=== PATIENT | male | born 1995 | race Caucasian/White ===

== ENCOUNTER 2017-02-09 18:56 | Emergency (ER) | payer SELFPAY ==
[~2017-02-09] VITALS: Ht 185.4 cm; Wt 74.8 kg
[2017-02-09 19:02] VITALS: BP 151/82
[2017-02-09] MEDS ORDERED: AMOXICILLIN 250 MG CAPSULE. PO ONE (19:15)
[2017-02-09] MEDS ORDERED: IBUPROFEN 800 MG TABLET. PO ONE (19:15)
[2017-02-09] MEDS ORDERED: HYDROcodone/APAP 5/325MG 1 TAB TABLET PO ONE (19:15)
[2017-02-09] MEDS ORDERED: ACET-704 PO (19:28)
[2017-02-09] MEDS ORDERED: AMOX875T PO (19:28)
[2017-02-09] MEDS ORDERED: IBUP-1060 PO (19:28)
--- NOTE | 2017-02-09 19:28 | PHYS DOC ---
Past Medical History Past Medical History: No Pertinent History Past Surgical History: Other Additional Past Surgical Histo: BACK CYST REMOVED, NOSE RECONSTRUCTION Alcohol Use: Occasionally Drug Use: None Adult General Chief Complaint Chief Complaint: DENTAL PROBLEM HPI HPI Patient is a 22 year old dental abscess that began this morning. Patient denies any fever or trismus. Review of Systems Review of Systems Constitutional: Denies fever or chills [] Eyes: Denies change in visual acuity, redness, or eye pain [] HENT: dental abscess Musculoskeletal: Denies back pain or joint pain [] Integument: Denies rash or skin lesions [] Neurologic: Denies headache, focal weakness or sensory changes [] Current Medications Current Medications Current Medications Medications (Trade) Dose Ordered Sig/Mariia Start Time Stop Time Status Last Admin Dose Admin Acetaminophen/ Hydrocodone Bitart (Lortab 5/325) 1 tab 1X ONCE 02/09/17 19:15 02/09/17 19:23 DC Amoxicillin (Amoxil) 1,000 mg 1X ONCE 02/09/17 19:15 02/09/17 19:23 DC Ibuprofen (Motrin) 800 mg 1X ONCE 02/09/17 19:15 02/09/17 19:23 DC Allergies Allergies Allergies Coded Allergies Type Severity Reaction Last Updated Verified No Known Drug Allergies 02/09/17 No Physical Exam Physical Exam Constitutional: Well developed, well nourished, no acute distress, non-toxic appearance. [] HENT: Normocephalic, atraumatic, bilateral external ears normal, oropharynx moist, no oral exudates, nose normal. [] Right cheek with mild swelling consistent with a dental abscess. There is mild diffuse swelling with erythema noted on the right molars and premolars. No fluctuance. Skin: Warm, dry, no erythema, no rash. [] Back: No tenderness, no CVA tenderness. [] Extremities: No tenderness, no cyanosis, no clubbing, ROM intact, no edema. [] Neurologic: Alert and oriented X 3, normal motor function, normal sensory function, no focal deficits noted. [] Psychologic: Affect normal, judgement normal, mood normal. [] Current Patient Data Vital Signs Vital Signs Date Time Temp Pulse Resp B/P (MAP) Pulse Ox O2 Delivery O2 Flow Rate FiO2 02/09/17 19:02 100.6 114 16 98 Room Air 100.6 EKG EKG [] Radiology/Procedures Radiology/Procedures [] Course & Med Decision Making Course & Med Decision Making Pertinent Labs and Imaging studies reviewed. (See chart for details) Patient is in the ED with a dental abscess. Discharged with amoxicillin for 10 days. Discharged with Tylenol 3 as needed for pain area and discharged with ibuprofen. Follow-up with his own dentist in 1-2 weeks. He was riding a slight temperature of 100.6. He was given ibuprofen. He was instructed not to take Tylenol and Tylenol 3 at the same time Dragon Disclaimer Dragon Disclaimer This electronic medical record was generated, in whole or in part, using a voice recognition dictation system. Departure Departure Impression: Primary Impression: Dentalgia Additional Impressions: Dental abscess Fever Disposition: 01 HOME, SELF-CARE Condition: STABLE Referrals: NO PCP (PCP) follow up with the dentist in one week Patient Instructions: Dental Abscess, Dental Caries Additional Instructions: You were seen for a dental abscess with fever. Please complete your antibiotics. Follow up with your dentist as soon as you can. Scripts Acetaminophen With Codeine (TYLENOL WITH CODEINE #3 TABLET) 1 Each Tablet 1 TAB PO PRN Q6HRS Y for PAIN, #30 TAB Prov: REINA MATHIS [employer]UDIO VISUAL SECRETARY 02/09/17 Ibuprofen (IBUPROFEN) 800 Mg Tablet 800 MG PO PRN Q6HRS Y for INFLAMMATION, #30 TAB Prov: REINA MATHIS [employer]UD[employer] VISUAL SECRETARY 02/09/17 Amoxicillin (AMOXICILLIN) 875 Mg Tablet 1 TAB PO BID, #20 TAB Prov: REINA MATHIS AUDIO VISUAL SECRETARY 02/09/17 Problem Qualifiers Additional Impressions: Fever Fever type: unspecified Qualified Codes: R50.9 - Fever, unspecified REINA MATHIS AUD[employer] VISUAL SECRETARY Feb 09, 2017 19:28
== END 2017-02-09 19:41 | disposition home or self-care (01) ==
LOC: ER 18:56
DX: K04.7 Periapical abscess without sinus (principal)
CPT/HCPCS: 99284